=== PATIENT | female | born 1970 | race Caucasian/White ===

== ENCOUNTER 2020-04-01 13:06 | Outpatient (CLI) | payer OTHER ==
[~2020-04-01 13:06] MED LIST: SEPTRA DS TABLE1 TAB PO
== END 2020-04-01 13:21 | disposition home or self-care (01) ==
LOC: RAD 13:06
PROVIDERS: ATTEND Orthopaedic Surgery
DX: M25.512 Pain in left shoulder (principal)

== ENCOUNTER 2020-05-25 16:31 | Outpatient (CLI) | payer OTHER | END 2020-05-25 16:55 | disposition home or self-care (01) | LOC: RAD 16:31 | DX: M54.89 Other dorsalgia (principal); G31.89 Other specified degenerative diseases of nervous system ==